=== PATIENT | female | born 1990 | race Caucasian/White ===

== ENCOUNTER 2022-01-17 15:30 | Outpatient (CLI) | payer OTHER ==
[~2022-01-17] VITALS: Ht 165.1 cm; Wt 81.4 kg
--- NOTE | 2022-01-17 15:37 | NUR ---
1537 PT AMBULATORY TO UNIT WITH SPOUSE. PT COMPLAINING OF RIGHT SIDE ABDOMEN PAIN AND REBOUND PAIN. PT REPORTS NO CTX, NO LEAKING OF FLUID, AND POSITIVE MOVEMENT. PT STATES WHEN BABY KICKS ON HER RIGHT SIDE IT INCREASES PAIN. WILL CONTINUE TO MONITOR.
[2022-01-17] MEDS ORDERED: PRENATAL TABLET PO (15:56)
[2022-01-17] MEDS ORDERED: NATURAL IRON65 MG (15:56)
[2022-01-17] MEDS ORDERED: BUSPAR10 MG PO (15:57)
[2022-01-17 16:10] VITALS: BP 129/82; PULSE 89; TEMP 98.3
[2022-01-17 16:38] LABS: HEMOGLOBIN 12.5 g/dl (12.5-16.0); MEAN CELL VOLUME 95 fl (80.0-100.0); MEAN CORPUSCULAR HEMOGLOBIN 32 pg (27-31); MEAN CORPUSCULAR HGB CONC 34 g/dl (33.0-37.0); MEAN PLATELET VOLUME 9.6 fl (7.4-10.4); PLATELET COUNT 231 K/mm3 (130-400); RED BLOOD COUNT 3.89 M/mm3 (4.10-5.30); REDCELL DISTRIBUTION WIDTH-CV 14.2 % (11.5-14.5)
[2022-01-17 16:40] VITALS: BP 125/88; PULSE 92
[2022-01-17 16:41] LABS: HEMATOCRIT 36.8 % (37.0-47.0)
[2022-01-17 16:53] LABS: BILIRUBIN,TOTAL 0.2 mg/dL (0.2-1.2); CALCIUM 9.4 mg/dL (8.4-10.2); CREATININE, serum 0.61 mg/dL (0.57-1.11); POTASSIUM 4.2 mmol/L (3.5-4.5); TOTAL PROTEIN 6.8 gm/dL (6.2-8.1)
--- NOTE | 2022-01-17 17:00 | NUR ---
[address] HOUGH. NO ABNORMAL FINDINGS. SVE AT 1707 REMAINS THE SAME -/-. DR. OHUGH WANTS PT TO D/C AND HAS FOLLOW UP APPOINTMENT SCHEDULED FOR TOMORROW. PT OKAY WITH DC PLAN.
--- NOTE | 2022-01-17 17:00 | NUR ---
[address] HOUGH. NO ABNORMAL FINDINGS. SVE AT 1707 REMAINS THE SAME -/-. DR. HOUGH WANTS PT TO D/C AND HAS FOLLOW UP APPOINTMENT SCHEDULED FOR TOMORROW. PT OKAY WITH DC PLAN.
[2022-01-17 17:03] LABS: COLLECTION METHOD CLEAN CATCH
[2022-01-17 17:10] VITALS: BP 115/78; PULSE 95
[2022-01-17 17:14] LABS: SQUAMOUS EPITHELIAL 0-2 /hpf (0-10); URINE BACTERIA None Seen /hpf (NONE SEEN); URINE RBC None Seen /hpf (0-2)
[2022-01-17 17:15] LABS: URINE APPEARANCE Hazy (CLEAR/HAZY); URINE BLOOD Negative (NEGATIVE); URINE COLOR Yellow (YELLOW); URINE GLUCOSE Negative (NEGATIVE); URINE KETONE Negative (NEGATIVE); URINE NITRATE Negative (NEGATIVE); URINE PROTEIN(semi-quant) Negative (NEGATIVE); URINE UROBILINOGEN 0.2 (NEGATIVE)
== END 2022-01-17 17:10 | disposition home or self-care (01) ==
LOC: LDRO 15:30
PROVIDERS: Obstetrics & Gynecology
DX: O99.891 Other specified diseases and conditions complicating pregnancy (principal); Z3A.00 Weeks of gestation of pregnancy not specified

== ENCOUNTER 2022-01-31 20:04 | Inpatient (IN) | payer OTHER ==
[2022-01-31] VITALS (8 sets, daily range): BP systolic 113–127; BP diastolic 73–84; PULSE 99–121; TEMP 98
[~2022-01-31] VITALS: Ht 165.1 cm; Wt 83.6 kg
[~2022-01-31 20:04] MED LIST: BUSPAR10 MG PO; NATURAL IRON65 MG; PRENATAL TABLET PO
[2022-01-31 22:21] LABS: BASO % 0.3 % (0.0-2.0); EOS % 0.3 % (0.0-4.0); GRAN # 12.3 K/mm3 (1.4-6.5); GRAN % 79.7 % (42.2-75.2); HEMATOCRIT 38.4 % (37.0-47.0); HEMOGLOBIN 13.3 g/dl (12.5-16.0); LYMPH # 1.8 K/mm3 (1.2-3.4); LYMPH % 11.9 % (20.0-51.0); MEAN CELL VOLUME 92 fl (80.0-100.0); MEAN CORPUSCULAR HEMOGLOBIN 32 pg (27-31); MEAN CORPUSCULAR HGB CONC 35 g/dl (33.0-37.0); MEAN PLATELET VOLUME 10.4 fl (7.4-10.4); MONO # 1.1 K/mm3 (0.1-0.6); MONO % 6.8 % (1.7-9.3); PLATELET COUNT 235 K/mm3 (130-400); RED BLOOD COUNT 4.18 M/mm3 (4.10-5.30); REDCELL DISTRIBUTION WIDTH-CV 13.4 % (11.5-14.5)
--- NOTE | 2022-01-31 22:35 | NUR ---
[employer] PRODUCTION CONTROL COORDINATING CLERK into room for epidural placement, see anesthesia record. Pt moved to sit on edge of bed
--- NOTE | 2022-01-31 22:48 | NUR ---
Pt states "I'm a little nauseated." 0982 Ephedrine given IV.
--- NOTE | 2022-01-31 23:20 | NUR ---
2320 - THIS RN ASSUMING CARE. BEDSIDE REPORT RECEIVED FROM ARIADNE MARTÍNEZ. CARE ONGOING.
--- NOTE | 2022-01-31 23:45 | NUR ---
2345 - RN CALLED TO BEDSIDE BY PATIENT. PATIENT STATES HER WATER BROKE. CLEAR FLUID NOTED ON PAD. SROM TIME NOTED. PERICARE PERFORMED AND PAD CHANGED. CARE ONGOING.
[2022-02-01] VITALS (59 sets, daily range): BP systolic 92–140; BP diastolic 54–102; PULSE 86–162; TEMP 97.5–98.8
[2022-02-01] MEDS ORDERED: COLACE 100100 MG/CAP PO (01:22)
--- NOTE | 2022-02-01 01:45 | NUR ---
0145 - TOCO TRACING INDESCERNIBLE. TOCO ADJUSTED. CARE ONGOING.
--- NOTE | 2022-02-01 01:54 | NUR ---
0144 - PATIENT POSITIONED IN RIGHT SIDE LYING HIP RELEASE. 0154 - PATIENT POSITIONED IN LEFT SIDE LYING HIP RELEASE. 0205 - SVE PERFORMED BY THIS RN. /-2. BAG OF WATER NOTED. PERICARE PERFORMED. 0210 - PATIENT POSITIONED LL RLS. CARE ONGOING.
--- NOTE | 2022-02-01 02:45 | NUR ---
TOCO TRACING DIFFICULT TO INTERPRET. PATIENT REPOSITIONED. TOCO ADJUSTED. CARE ONGOING.
--- NOTE | 2022-02-01 11:10 | NUR ---
PT PUSHING WITH CONTRACTIONS. RN CONTINOUSLY AT BEDSIDE MONITORING FHR. CATEGORY 1 STRIP AT THIS TIME.
[2022-02-02 00:35] VITALS: BP 123/83; PULSE 93; TEMP 97.6
[2022-02-02 04:52] VITALS: BP 120/82; PULSE 92; TEMP 97.8
[2022-02-02 06:27] LABS: HEMOGLOBIN 10.3 g/dl (12.5-16.0)
[2022-02-02 06:28] LABS: HEMATOCRIT 30.1 % (37.0-47.0)
[2022-02-02] MEDS ORDERED: IBU600 MG PO (06:59)
[2022-02-02 08:40] VITALS: BP 110/80; PULSE 89; TEMP 97.5
[2022-02-02 16:35] VITALS: BP 119/85; PULSE 94; TEMP 97.6
[2022-02-02 20:10] VITALS: BP 115/77; PULSE 86; TEMP 98.2
[2022-02-03 07:32] VITALS: BP 120/81; PULSE 74; TEMP 97.4
--- NOTE | 2022-02-03 13:09 | NUR ---
PT DISCHARGED HOME IN STABLE CONDTION. FOLLOW UP APPOINTMENT AND DISCHARGE INSTRUCTIONS EXPLAINED TO PT AND SPOUSE. PT VERBALIZED UNDERSTANDING. PT AMBULATED OFF UNIT WITH NO COMPLAINTS.
== END 2022-02-03 12:33 | disposition home or self-care (01) | DRG 807 ==
LOC: LDRO 20:04 → LDR 21:55 → OB 02-02 11:33
PROVIDERS: Student in an Organized Health Care Education/Training Program; ADMIT Obstetrics & Gynecology
PROC: 10E0XZZ Delivery of Products of Conception, External Approach (ICD-10-PCS; principal; 2022-02-01)
PROC: 0KQM0ZZ Repair Perineum Muscle, Open Approach (ICD-10-PCS; 2022-02-01)
DX: O36.63X0 Maternal care for excessive fetal growth, third trimester, not applicable or unspecified (principal); Z37.0 Single live birth; O99.02 Anemia complicating childbirth; D64.9 Anemia, unspecified; F90.9 Attention-deficit hyperactivity disorder, unspecified type; O99.344 Other mental disorders complicating childbirth; F41.9 Anxiety disorder, unspecified; F32.A Depression, unspecified; O48.0 Post-term pregnancy; O76 Abnormality in fetal heart rate and rhythm complicating labor and delivery; O70.1 Second degree perineal laceration during delivery; O69.2XX0 Labor and delivery complicated by other cord entanglement, with compression, not applicable or unspecified; Z3A.41 41 weeks gestation of pregnancy; Z23 Encounter for immunization
CPT/HCPCS: J2210; J2590; J2795; J7120

== ENCOUNTER 2023-11-28 06:25 | Inpatient (IN) | payer BC ==
[~2023-11-28] VITALS: Ht 165.1 cm; Wt 80.9 kg
[2023-11-28] VITALS (31 sets, daily range): BP systolic 90–125; BP diastolic 56–81; PULSE 71–96; TEMP 97.4–98.4
[~2023-11-28 06:25] MED LIST changes: +CLEOCIN HC150 MG/CAP PO; +COLACE 100100 MG/CAP PO; +IBU600 MG PO; +LR & Oxytocin 500 ML IV SCH; +LR 1,000 ML IV SCH
[2023-11-28] MEDS ORDERED: WELLBUTRIN XL150 MG PO (06:57)
[2023-11-28] MEDS ORDERED: LEXAPRO20 MG (06:58)
[2023-11-28 07:46] LABS: MEAN CELL VOLUME 95 fl (80.0-100.0); MEAN CORPUSCULAR HEMOGLOBIN 31 pg (27-31); MEAN CORPUSCULAR HGB CONC 32 g/dl (33.0-37.0); MEAN PLATELET VOLUME 9.3 fl (7.4-10.4); PLATELET COUNT 197 K/mm3 (130-400); RED BLOOD COUNT 3.58 M/mm3 (4.10-5.30); REDCELL DISTRIBUTION WIDTH-CV 14.6 % (11.5-14.5)
[2023-11-28 08:04] LABS: HEMATOCRIT 33.9 % (37.0-47.0)
[2023-11-28 08:17] LABS: BAND 1 % (0-10); EOSINOPHIL 1 % (0-4); LYMPHOCYTE 17 % (20.0-51.0); NEUTROPHILS 72 % (42.0-75.2); PLATELET ESTIMATE NORMAL (NORMAL)
[2023-11-28] MEDS ORDERED: Cetirizine 10 MG TAB PO SCH (09:55)
--- NOTE | 2023-11-28 10:00 | NUR ---
UNABLE TO TRACE ACCURATE FHR AND EFM CATEGORY DUE TO MATERNAL POSTITION AND HABITUS. THIS RN AT PT BEDSIDE ATTEMPTING TO TRACE FHR, PT VS STABLE, AUDIBLE FHR BASELINE AROUND 140'S, PT AWAKE AND ALERT X3, PT SPOUSE SUPPORTIVE AT BEDSIDE.
[2023-11-28] MEDS ORDERED: ROPivacaine PF 0.2% 200 ML IV ONE (10:07)
--- NOTE | 2023-11-28 10:16 | NUR ---
1012 TERE DIAZ AT PT BEDSIDE EDUCATING AND DISCUSSING PT EPIDURAL PLACEMENT, PT VERBALLY UNDERSTANDING AND CONSENTING. PT VS STABLE, EFM CAT 1. 1016 SINGLE SHOT ADMINISTERED PER TERE PLANNING SPECIALIST, PT TOLERATED WELL. TERE SECURES AND TAPES EPIDURAL SITE AND PT REPOSITIONED WEDGE RIGHT. PT VS STABLE, EFM CAT 1. PT REPORTS SLOWLY FEELING RELIEF WITH CTX BUT STILL PAINFUL.
[2023-11-28] MEDS ORDERED: diphenhydrAMINE 25 MG CAP PO PRN (10:45)
[2023-11-28] MEDS ORDERED: Ondansetron 4 MG/2 ML VIAL IV PRN (10:45)
[2023-11-28] MEDS ORDERED: Naloxone 0.4 MG/ML VIAL IV PRN ×2 (10:45→16:30)
[2023-11-28] MEDS ORDERED: diphenhydrAMINE 50 MG/ML 1 ML VIAL IV PRN (10:45)
[2023-11-28] MEDS ORDERED: ePHEDrine 50 MG/10 ML VIAL IV PRN (10:45)
--- NOTE | 2023-11-28 10:45 | NUR ---
UNABLE TO TRACE PT CONTRACTIONS DUE TO MATERNAL POSITION AND HABITUS, THIS RN AT PT BEDSIDE ATTEMPTING TO PALPATE AND TRACE ACCURATE TOCO
--- NOTE | 2023-11-28 12:00 | NUR ---
PT REPORTING PAIN WITH CONTRACTIONS AND NAUSEA, THIS RN AT BEDSIDE OBSERVES PT BP 90/56 WELL. ADMINISTERED ZOFRAN AND EPHEDRINE PER ORDERS. THIS RN REMAINS AT PT BEDSIDE TO MONITOR, PT REPORTS FEELING NAUSEA RELIEF BUT OBSERVED PT BREATHING THROUGH CONTRACTIONS AND STILL REPORTING PAIN. TERE AND CHARGE NURSE NOTIFIED OF PT PAIN, PT EXPLAINED SHE WILL USE HER BUTTON TO PRESS IF SHE IS NOT FEELING REIEF OF PAIN.
--- NOTE | 2023-11-28 12:54 | NUR ---
1245 SVE 10/100/+2, PT NOT REPORTING ANY PAIN OR DISCOMFORT "I CAN'T FEEL A THING." THIS RN EDUCATES PT TO DELAY PUSHING UNTIL PROVIDER IS NEAR DUE TO INFANT STATION. 1247 , CHARGE NURSE, AND NURSERY NURSE NOTIFIED OF PT COMPLETE SVE. REPORTS HE IS ENTERING THE UNIT NOW. PT VS STABLE, EFM CAT 1, PT SALMA Q 2-3 MIN APART LASTING 70-120 SEC. THIS RN SETS ROOM FOR DELIVERY. 1250 AT PT BEDSIDE, BED SET FOR DELIVERY AND PT LEGS IN STIRRUPTS. CHARGE NURSE AND NURSERY NURSE AT PT BEDSIDE. PT VS STABLE, EFM CAT 1, PT SPOUSE SUPPORTIVE AT BEDSIDE. 1254 PT PUSHES WITH CONTRACTION AND OF VIABLE FEMALE , WIPES BABY AND PLACES ON MATERNAL CHEST. CORD CLAMPED PER AND CORD CUT BY PT SPOUSE. CARE ASSUMED OVER TO NURSERY NURSE. 1300 OF PLACENTA, 2ND DEGREE REPAIR BEGUN PER . PT VS STABLE, PT REPORTS NO PAIN. PITOCIN STARTED AND FUNDUS FIRM AT UMBILICUS WITH SMALL AMOUNT OF LOCHIA, NO CLOTS. 1315 PT CLEANED AND REPOSITIONED IN BED, ROOM CLEANED FROM DELIVERY. PT REPORTS NO PAIN, PT VS STABLE. PT SPOUSE SUPPORTIVE AT BEDSIDE. FUNDUS FIRM AT UMBILICUS WITH SCANT LOCHIA, NO CLOTS. PT EPIDURAL SHUT OFF AND AWAKE AND ALERT X3
[2023-11-28] MEDS ORDERED: Magnes Hydrox (MOM) 80 MG/ML 30 ML CUP PO PRN (13:15)
[2023-11-28] MEDS ORDERED: Loratadine 10 MG TAB PO PRN (13:15)
[2023-11-28] MEDS ORDERED: Measles/Mumps/Rubella Virus Vaccine Live w Diluent 0.5 ML VIAL SQ SCH (16:30)
[2023-11-28] MEDS ORDERED: Phenylephrine/Mineral Oil/Petrolatum 57 GM TUBE RC PRN (16:30)
[2023-11-28] MEDS ORDERED: Acetaminophen 500 MG TAB PO SCH (16:30)
[2023-11-28] MEDS ORDERED: Witch Hazel 50% Pads Bulk TUB TP PRN (16:30)
[2023-11-28] MEDS ORDERED: oxyCODONE 5 MG TAB PO PRN (16:30)
[2023-11-28] MEDS ORDERED: Ibuprofen 600 MG TAB PO SCH (16:30)
[2023-11-28] MEDS ORDERED: Mag/Al Hydrox/Simeth Susp 30 ML CUP PO PRN (16:30)
[2023-11-28] MEDS ORDERED: Sennosides/Docusate 8.6-50 MG TAB PO SCH (17:00)
--- NOTE | 2023-11-28 17:30 | NUR ---
PATIENT ASSISTED TO EDGE OF BED. EPIDURAL CATHETER REMOVED. PATIENT ASSISTED X1 RN WITH SERA STEADY TO BATHROOM. PATIENT NOT INITIALLY ABLE TO VOID. PERICARE COMPLETED. PATIENT ATTEMPTED TO STANDUP WITH SERA STEADY AND BEGAN TO VOID. PATIENT SAT BACK DOWN ON TOILET AND WAS ASSISTED X 1 RN TO CLEAN UP. PATIENT ATTMEPTED TO STAND UP USING SERA STEADY AND BEGAN VOIDING AGAIN AND WAS THEN ABLE TO EMPTY BLADDER ON TOILET. PATIENT ASSISTED X1 RN TO ROOM. PATIENT ORIENTED TO ROOM.
[2023-11-28] MEDS ORDERED: traZODone 50 MG TAB PO PRN (21:00)
[2023-11-29 03:30] VITALS: BP 112/74; PULSE 86; TEMP 98
[2023-11-29 08:30] VITALS: BP 117/68; PULSE 79; TEMP 98.2
[2023-11-29] MEDS ORDERED: Prenatal Vitamins/Iron/FA TAB PO SCH (09:00)
[2023-11-29] MEDS ORDERED: Escitalopram 10 MG TAB PO SCH (09:00)
[2023-11-29] MEDS ORDERED: buPROPion XL (24-HR) 150 MG TAB PO SCH (09:00)
[2023-11-29] MEDS ORDERED: buPROPion SR (12-HR) 150 MG TAB PO SCH (09:00)
--- NOTE | 2023-11-29 10:23 | NUR ---
Initial visit; Parents thanked Hand Flesher for looking in on them and offering congratulations and God's blessings for the of their daughter. Hand Flesher thanked family for choosing [facility].
== END 2023-11-29 15:00 | disposition home or self-care (01) | DRG 807 ==
LOC: LDR 06:25 → OB 12:01
PROVIDERS: ADMIT Obstetrics & Gynecology
PROC: 10E0XZZ Delivery of Products of Conception, External Approach (ICD-10-PCS; principal; 2023-11-28)
PROC: 0KQM0ZZ Repair Perineum Muscle, Open Approach (ICD-10-PCS; 2023-11-28)
PROC: 10907ZC Drainage of Amniotic Fluid, Therapeutic from Products of Conception, Via Natural or Artificial Opening (ICD-10-PCS; 2023-11-28)
PROC: 3E033VJ Introduction of Other Hormone into Peripheral Vein, Percutaneous Approach (ICD-10-PCS; 2023-11-28)
DX: O99.344 Other mental disorders complicating childbirth (principal); Z37.0 Single live birth; F41.9 Anxiety disorder, unspecified; Z3A.39 39 weeks gestation of pregnancy; O70.1 Second degree perineal laceration during delivery; O24.424 Gestational diabetes mellitus in childbirth, insulin controlled
CPT/HCPCS: J2405; J2590; J2795; J7120